=== PATIENT | female | born 1940 | race Hispanic/Latino ===

== ENCOUNTER 2019-07-20 12:55 | Emergency (ER) | payer MEDICARE ==
[~2019-07-20] VITALS: Ht 160 cm; Wt 64.9 kg
--- NOTE | 2019-07-20 15:13 | Diagnostic Imaging Report ---
CT scan of the RIGHT HIP, WITHOUT intravenous contrast. TECHNIQUE: Standard departmental protocols were used. Sagittal and coronal reformatted images were obtained. Dose modulation, iterative reconstruction, and/or weight based adjustment of the mA/kV was utilized to reduce the radiation dose to as low as reasonably achievable. DLP = 257.42 mGy-cm HISTORY: Pain, right side, twisting and her popped one and half weeks ago, getting worse COMPARISON: None available FINDINGS: Bones: No acute displaced fracture. No aggressive osseous lesion. Minimal enthesopathic changes at the greater trochanter. Joints: Minimal anterior degenerative changes of the right hip, mild of the right sacroiliac joint, and moderate of the pubic symphysis. Soft tissues: Diffuse scattered atherosclerotic vascular calcifications. IMPRESSION: 1. No acute displaced fracture. 2. 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 3. Minimal chronic enthesopathic changes at the greater trochanter of the femur. Signed by: Dr. Steve Torres D.O., M.M.M. on 07/20/2019 3:09 PM
[2019-07-20 15:15] LABS: BASOPHILS # (AUTO) 0.1 (0.0-0.1); BASOPHILS % 0.6 % (0.0-1.0); EOSINOPHILS % 0.2 % (0.0-6.0); HEMATOCRIT 37.6 % (34.2-44.1); HEMOGLOBIN 12.6 g/dL (12.0-16.0); LYMPHOCYTES # (AUTO) 1.5 (1.0-3.2); LYMPHOCYTES % 12.3 % (18.0-39.1); MEAN CORPUSCULAR HGB CONC 33.5 g/dL (31-35); MEAN CORPUSCULAR VOLUME 86.6 fL (81-99); MONOCYTES # (AUTO) 0.5 (0.2-0.8); MONOCYTES % 4.3 % (4.4-11.3); NEUTROPHILS # (AUTO) 10.1 (2.1-6.9); NEUTROPHILS % 81.7 % (38.7-80.0); PLATELET COUNT 367 x10e3/uL (140-360); RED BLOOD COUNT 4.34 x10e6/uL (3.6-5.1); RED CELL DISTRIBUTION WIDTH 13.2 % (11.7-14.4)
[2019-07-20 15:22] LABS: INR 0.99; PROTHROMBIN TIME 13.6 seconds (11.9-14.5)
[2019-07-20 15:23] LABS: PARTIAL THROMBOPLASTIN TIME 34.7 seconds (23.8-35.5)
--- NOTE | 2019-07-20 15:25 | Diagnostic Imaging Report ---
CT the pelvis, 07/20/2019. History: Vomiting, hip pain. Comparison: <None available>. Technique: Multidetector imaging of the pelvis was performed from the level of the iliac crests to the proximal femurs without administration of contrast. RADIATION DOSE: Total DLP: 257 mGy*cm Dose modulation, iterative reconstruction, and/or weight based adjustment of the mA/kV was utilized to reduce the radiation dose to as low as reasonably achievable. Discussion: The bladder is unremarkable. The uterus and adnexa are absent. Diverticuli are seen within the visualized colon without evidence of adjacent inflammation. A small fat-containing ventral hernia is present. There is no evidence of free fluid or adenopathy. Degenerative changes are present in the lumbar spine and SI joints. No acute osseous findings. IMPRESSION: 1. Colonic diverticulosis without evidence of diverticulitis. 2. Small fat-containing ventral hernia. No acute pelvic abnormality. Signed by: Jey Zimmerman on 07/20/2019 3:22 PM
[2019-07-20 15:30] LABS: ALANINE AMINOTRANSFERASE 12 IU/L (0-55); ALBUMIN 3.7 g/dL (3.5-5.0); ALBUMIN/GLOBULIN RATIO 1.1 (0.8-2.0); ALKALINE PHOSPHATASE 74 IU/L (40-150); AMYLASE 27 U/L (25-125); ANION GAP 16.4 mmol/L (8-16); BLOOD UREA NITROGEN 23 mg/dL (7-26); BUN/CREATININE RATIO 29 (6-25); CALCIUM 10.3 mg/dL (8.4-10.2); CARBON DIOXIDE 21 mmol/L (22-29); CHLORIDE 103 mmol/L (98-107); CREATINE KINASE 25 IU/L (29-168); CREATININE, SERUM 0.79 mg/dL (0.57-1.11); EST GLOMERULAR FILTRATION RATE > 60 ML/MIN (60-); GLUCOSE 223 mg/dL (74-118); LIPASE 14 U/L (8-78); POTASSIUM 4.4 mmol/L (3.5-5.1); SODIUM 136 mmol/L (136-145)
[2019-07-20 15:40] LABS: BILIRUBIN,URINE NEGATIVE (NEGATIVE); CLARITY,URINE SL CLOUDY (CLEAR); COLOR,URINE YELLOW (YELLOW); KETONES,URINE NEGATIVE (NEGATIVE); LEUKOCYTE ESTERASE ,URINE SMALL (NEGATIVE); NITRITE,URINE NEGATIVE (NEGATIVE); PROTEIN,URINE DIPSTICK NEGATIVE (NEGATIVE); URINE UROBILINOGEN 0.2 mg/dL (0.2 - 1)
[2019-07-20] MEDS ORDERED: SODIUM CHLORIDE 0.9% 1000ML 1,000 ML IV STA (15:40)
[2019-07-20] MEDS ORDERED: ONDANSETRON HCL INJ 2MG/ML 2ML 2 MG/ML VIAL IV ONE (15:40)
[2019-07-20] MEDS ORDERED: FAMOTIDINE 20 MG/2 ML VIAL IV ONE (15:40)
[2019-07-20 15:58] LABS: CALCIUM OXALATE CRYSTALS,UR MODERATE (FEW); EPITHELIAL CELLS,URINE RARE /LPF
[2019-07-20] MEDS ORDERED: CEFTRIAXONE SOD 1 GM/NS 50 ML 50 ML IV ONE (18:45)
--- NOTE | 2019-07-20 19:28 | Diagnostic Imaging Report ---
EXAMINATION: CT of the abdomen and pelvis with contrast. TECHNIQUE: Helical CT images of the abdomen and pelvis were performed from the lung bases to the lesser trochanters after the intravenous administration of 100 cc of Isovue 300 and the oral administration of none. Coronal and sagittal reformatted images were obtained.Dose modulation, iterative reconstruction, and/or weight based adjustment of the mA/kV was utilized to reduce the radiation dose to as low as reasonably achievable. COMPARISON: None. CLINICAL HISTORY:Abdominal pain DISCUSSION: ABDOMEN/PELVIS: LOWER THORAX:Unremarkable. HEPATOBILIARY: No focal hepatic lesions. No intra-or extrahepatic biliary ductal dilation. Cholecystectomy. [place] effect in the common bile duct. SPLEEN: No splenomegaly. PANCREAS: No focal masses or ductal dilatation. ADRENALS: Right adrenal 3.1 cm nodule with Hounsfield 34. Left adrenal 3.3 cm nodule with areas of macroscopic fat measuring -38 Hounsfield. KIDNEYS/URETERS: No hydronephrosis, stones, or solid mass lesions. PELVIC ORGANS/BLADDER: The bladder is normal. PERITONEUM/RETROPERITONEUM: Mild pelvic free fluid. LYMPH NODES: No intra-abdominal, retroperitoneal, pelvic or inguinal lymphadenopathy. VESSELS: Vascular calcifications. GI TRACT: No distention or wall thickening. Colonic diverticulosis. BONES AND SOFT TISSUE: No bony destructive lesions. No soft tissue abnormalities. IMPRESSION: No acute CT finding. 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 Follow-up imaging recommended. Colonic diverticulosis without inflammatory change. Signed by: Dr. Ryan Montero M.D. on 07/20/2019 7:25 PM
== END 2019-07-20 20:12 | disposition home or self-care (01) ==
LOC: ER 12:55
DX: M25.551 Pain in right hip (principal); R26.2 Difficulty in walking, not elsewhere classified; K57.90 Diverticulosis of intestine, part unspecified, without perforation or abscess without bleeding; K43.9 Ventral hernia without obstruction or gangrene
CPT/HCPCS: 36415; 72192; 73700; 74177; 80053; 81001; 82150; 82550; 82553; 83690; 83735; 83880; 84484; 85025; 85610; 85730; 87086; 99284; J2405; J7030

== ENCOUNTER → 2023-03-27 | Outpatient (RCR) | payer MEDICARE | LOC: OT 03-23 08:37 | PROVIDERS: ATTEND Physician Assistant | DX: M75.81 Other shoulder lesions, right shoulder (principal) ==